=== PATIENT | female | born 1980 | race Caucasian/White ===

== ENCOUNTER → 2020-03-01 | Outpatient (CLI) | payer OTHER ==
[~2020-03-01] MED LIST: ALB0.5V INH; ALBU8.5H2 IH; AZIT500T2 PO; CEFD300C3 PO; FEXO1TAB49 PO; FLUT1DIS3 IH; FLUT1DIS4 IH; MMT17NA NSEACH; MONT10TA21 PO; MULT-974 PO; OMEG1CAP51 PO; OMEP20CA6 PO; PRD20T PO; RT-ALBUTEROL SULF 2.5 MG/3 ML PRE-MIX VIAL INH ONE
== END ==
LOC: RT 07:55
PROVIDERS: ATTEND Family Medicine
DX: J45.909 Unspecified asthma, uncomplicated (principal)
CPT/HCPCS: 94060; 94726; 94729